=== PATIENT | female | born 1990 | race Caucasian/White ===

== ENCOUNTER 2017-08-07 01:47 | Emergency (ER) | payer MEDICAID, OTHER ==
[~2017-08-07] VITALS: Ht 152.4 cm; Wt 73.0 kg
[2017-08-07 05:29] LABS: CLARITY,URINE SLIGHTLY CLOUDY (Clear); COLOR,URINE YELLOW (Yellow); GLUCOSE, URINE NEGATIVE (Neg); KETONES,URINE NEGATIVE (Neg); LEUKOCYTE ESTERASE ,URINE NEGATIVE (Neg); NITRITES, URINE NEGATIVE (Neg); OCCULT BLOOD,URINE MODERATE (Neg); PROTEIN,URINE NEGATIVE (Neg); URINE HCG NEGATIVE (NEG); UROBILINOGEN,URINE 0.2 E.U/dL (0.2-1.0)
[2017-08-07 05:38] LABS: UA COLLECTION TYPE CLN CATCH MIDSTREAM
[2017-08-07 05:39] LABS: WBC,URINE NONE SEEN /HPF (0-4)
[2017-08-07 05:40] LABS: BACTERIA,URINE NONE SEEN /HPF (Neg); MUCUS STRANDS NONE SEEN /LPF (Neg); SQUAMOUS EPITHELIAL CELL,UR FEW /LPF (FEW)
[2017-08-07] MEDS ORDERED: ketorolac trometh inj. 60 MG/2 ML VIAL IM ONE (06:15)
[2017-08-07] MEDS ORDERED: IBUP-1984 PO (06:18)
[2017-08-07] MEDS ORDERED: ONDA8TAB9 PO (06:18)
[2017-08-07 06:29] VITALS: BP 131/79
== END 2017-08-07 06:30 | disposition home or self-care (01) ==
LOC: ER 01:47
DX: N23 Unspecified renal colic (principal); F12.10 Cannabis abuse, uncomplicated
CPT/HCPCS: 81001; 81025; 96372; 99284; J1885

== ENCOUNTER 2018-08-06 08:31 | Emergency (ER) | payer MEDICAID ==
[~2018-08-06] VITALS: Ht 152.4 cm; Wt 78.8 kg
[~2018-08-06 08:31] MED LIST: ONDA8TAB9 PO
[2018-08-06 08:57] VITALS: BP 134/79
[2018-08-06 10:55] LABS: BASOPHILS # (AUTO) 0.1 X10'3 (0-0.2); BASOPHILS % (AUTO) 0.6 % (0-1); EOSINOPHILS # (AUTO) 0.1 X10'3 (0-0.9); EOSINOPHILS % (AUTO) 0.7 % (0-6); HEMATOCRIT 39.9 % (35.0-45.0); HEMOGLOBIN 13.7 g/dl (12.0-16.0); LYMPHOCYTES # (AUTO) 1.9 X10'3 (1.1-4.8); MEAN CORPUSCULAR HEMOGLOBIN 30.5 PG (27.0-31.0); MEAN CORPUSCULAR HGB CONC 34.3 g/dL (33.0-36.5); MEAN PLATELET VOLUME 8.6 FL (7.4-10.4); MONOCYTES # (AUTO) 0.7 X10'3 (0-0.9); MONOCYTES % (AUTO) 7.2 % (2-12); NEUTROPHILS # (AUTO) 7.4 X10'3 (1.8-7.7); NEUTROPHILS % (AUTO) 72.5 % (42-75); PLATELET COUNT 238 X10'3 (140-440); RED BLOOD COUNT 4.49 X10'6 (4.20-5.60); RED CELL DISTRIBUTION WIDTH 14.4 % (11.5-14.5); WHITE BLOOD COUNT 10.3 X10'3 (4.5-11.0)
[2018-08-06 11:08] LABS: ALANINE AMINOTRANSFERASE 30 U/L (12-78); ALBUMIN 4.1 G/DL (3.4-5.0); ALBUMIN/GLOBULIN RATIO 1.4 (1.1-1.5); ALKALINE PHOSPHATASE 61 IU/L (46-116); ANION GAP 6 (8-16); ASPARTATE AMINO TRANSFERASE 13 U/L (10-37); BILIRUBIN,TOTAL 0.4 MG/DL (0.1-1.0); BLOOD UREA NITROGEN 16 MG/DL (7-18); BUN/CREATININE RATIO 18.4 (6.6-38.0); CALCIUM 9.4 MG/DL (8.5-10.1); CHLORIDE 105 MMOL/L (99-107); CREATININE 0.87 MG/DL (0.40-0.90); GLUCOSE 97 MG/DL (70-104); POTASSIUM 4.3 MMOL/L (3.5-5.1); SODIUM 140 MMOL/L (135-145); TOTAL CARBON DIOXIDE 29.5 MMOL/L (24-32); TOTAL PROTEIN 7.1 G/DL (6.4-8.2); eGFR 77 ML/MIN
[2018-08-06 14:02] LABS: CLARITY,URINE CLOUDY (Clear); COLOR,URINE YELLOW (Yellow); GLUCOSE, URINE NEGATIVE (Neg); KETONES,URINE NEGATIVE (Neg); LEUKOCYTE ESTERASE ,URINE NEGATIVE (Neg); NITRITES, URINE NEGATIVE (Neg); OCCULT BLOOD,URINE SMALL (Neg); PH,URINE 5.5 (4.8-8.0); PROTEIN,URINE TRACE mg/dl (Neg); UA COLLECTION TYPE CLN CATCH MIDSTREAM; URINE HCG NEGATIVE (NEG); UROBILINOGEN,URINE 0.2 E.U/dL (0.2-1.0)
[2018-08-06 14:07] LABS: MUCUS STRANDS MANY /LPF (Neg); SQUAMOUS EPITHELIAL CELL,UR MANY /LPF (FEW)
[2018-08-06 14:08] LABS: WBC,URINE 20-30 /HPF (0-4)
[2018-08-06 14:17] LABS: CAL OXALATE CRYSTALS 1+ /HPF (NEGATIVE); HYALINE CASTS 0-3 /LPF (NEGATIVE); TRANSITIONAL EPI CELLS,URINE FEW /HPF
[2018-08-06 14:20] LABS: BACTERIA,URINE 3+ /HPF (Neg)
[2018-08-06] MEDS ORDERED: HYDR-4353 PO (14:50)
[2018-08-06] MEDS ORDERED: NITR100C6 PO (14:50)
[2018-08-06] MEDS ORDERED: IBUP-1984 PO (14:50)
[2018-08-06] MEDS ORDERED: ONDA4TAB6 PO (14:50)
== END 2018-08-06 15:01 | disposition home or self-care (01) ==
LOC: ER 08:31
DX: N23 Unspecified renal colic (principal); F12.90 Cannabis use, unspecified, uncomplicated; Z79.899 Other long term (current) drug therapy
CPT/HCPCS: 36415; 80053; 81001; 81025; 85025; 99283

== ENCOUNTER 2019-12-28 23:53 | Inpatient (IN) | payer MEDICAID ==
[~2019-12-28] VITALS: Ht 152.4 cm; Wt 65.9 kg
[~2019-12-28 23:53] MED LIST changes: +NITR100C6 PO; +ONDA4TAB6 PO
[2019-12-29] VITALS (16 sets, daily range): BP systolic 94–137; BP diastolic 52–79
[2019-12-29] MEDS ORDERED: normal saline 1000ml 1,000 ML IV ONE (00:10)
[2019-12-29] MEDS ORDERED: ondansetron/PF 4mg/2ml inj IV ONE (00:10)
[2019-12-29] MEDS ORDERED: morphine 4 MG/ML inj SYRINge IV ONE ×3 (00:10→03:00)
[2019-12-29 00:44] LABS: BASOPHILS # (AUTO) 0.1 X10'3 (0-0.2); BASOPHILS % (AUTO) 0.8 % (0-1); EOSINOPHILS # (AUTO) 0.1 X10'3 (0-0.9); HEMATOCRIT 36.9 % (35.0-45.0); HEMOGLOBIN 12.2 g/dl (12.0-16.0); LYMPHOCYTES # (AUTO) 1.1 X10'3 (1.1-4.8); LYMPHOCYTES % (AUTO) 10.1 % (21-51); MEAN CORPUSCULAR HEMOGLOBIN 29.6 PG (27.0-31.0); MEAN CORPUSCULAR HGB CONC 33.1 g/dL (33.0-36.5); MEAN CORPUSCULAR VOLUME 89.4 FL (78-98); MEAN PLATELET VOLUME 7.2 FL (7.4-10.4); MONOCYTES # (AUTO) 0.2 X10'3 (0-0.9); MONOCYTES % (AUTO) 2.1 % (2-12); NEUTROPHILS # (AUTO) 8.9 X10'3 (1.8-7.7); PLATELET COUNT 393 X10'3 (140-440); RED BLOOD COUNT 4.13 X10'6 (4.20-5.60); WHITE BLOOD COUNT 10.4 X10'3 (4.5-11.0)
[2019-12-29 01:01] LABS: ALANINE AMINOTRANSFERASE 43 U/L (12-78); ALBUMIN 3.4 G/DL (3.4-5.0); ALBUMIN/GLOBULIN RATIO 0.7 (1.1-1.5); ALKALINE PHOSPHATASE 93 IU/L (46-116); ANION GAP 10 (8-16); ASPARTATE AMINO TRANSFERASE 33 U/L (10-37); BILIRUBIN,TOTAL 0.2 MG/DL (0.1-1.0); BLOOD UREA NITROGEN 18 MG/DL (7-18); CALCIUM 9.3 MG/DL (8.5-10.1); CHLORIDE 104 MMOL/L (99-107); GLUCOSE 77 MG/DL (70-104); LIPASE 567 U/L (73-393); POTASSIUM 4.1 MMOL/L (3.5-5.1); SODIUM 140 MMOL/L (135-145); TOTAL CARBON DIOXIDE 26.1 MMOL/L (24-32); TOTAL PROTEIN 8.2 G/DL (6.4-8.2); eGFR 41 ML/MIN
[2019-12-29] MEDS ORDERED: proCHLORperazine 10 MG/2 ml inj IV ONE (01:15)
[2019-12-29 01:34] LABS: CLARITY,URINE CLOUDY (Clear); COLOR,URINE BROWN (Yellow); GLUCOSE, URINE NEGATIVE (Neg); KETONES,URINE 15 mg/dl (Neg); LEUKOCYTE ESTERASE ,URINE MODERATE (Neg); NITRITES, URINE POSITIVE (Neg); OCCULT BLOOD,URINE LARGE (Neg); PH,URINE 5.5 (4.8-8.0); PROTEIN,URINE >=300 mg/dl (Neg); URINE HCG NEGATIVE (NEG)
[2019-12-29 01:41] LABS: UA COLLECTION TYPE CLN CATCH MIDSTREAM
[2019-12-29 01:43] LABS: BACTERIA,URINE 4+ /HPF (Neg); MUCUS STRANDS NONE SEEN /LPF (Neg); RBC,URINE TNTC /HPF (0-2); SQUAMOUS EPITHELIAL CELL,UR MODERATE /LPF (FEW); WBC CLUMPS,URINE MODERATE /HPF (NEGATIVE); WBC,URINE TNTC /HPF (0-4)
[2019-12-29 01:46] LABS: URINE AMPHETAMINE SCREEN POSITIVE (Neg); URINE BARBITUATE SCREEN NEGATIVE (Neg); URINE BENZODIAZEPINES SCREEN NEGATIVE (Neg); URINE CANNABINOID SCREEN POSITIVE (Neg); URINE COCAINE SCREEN NEGATIVE (Neg); URINE METHADONE SCREEN NEGATIVE (Neg); URINE OPIATE SCREEN NEGATIVE (Neg); URINE PHENCYCLIDINE SCREEN NEGATIVE (Neg)
[2019-12-29] MEDS ORDERED: CefTRIAXone 2gm/D5W 50ml 50 ML IV ONE (01:50)
[2019-12-29] MEDS ORDERED: morphine/NS 5 mg/ml CADD 50 ML IV SCH (03:19)
[2019-12-29] MEDS ORDERED: potassium CL 10mEq/100ml bag 100 ML IV PRN ×2 (03:20)
[2019-12-29] MEDS ORDERED: naloxone 0.4 mg/ml inj IV PRN (03:20)
[2019-12-29] MEDS ORDERED: CADD PCA waste documentation MC PRN (03:20)
[2019-12-29] MEDS: normal saline 1000ml 1,000 ML IV SCH ×3 (05:23→15:11)
[2019-12-29] MEDS: HYDROmorphone/NS 1 mg/ml CADD 50 ML IV SCH ×10 (05:27→23:00)
[2019-12-29] MEDS: K and/or MAG REPLACEMENT MC SCH ×2 (08:00→20:00)
[2019-12-29] MEDS: ondansetron/PF 4mg/2ml inj IV PRN (10:34)
[2019-12-29 11:48] LABS: PARTIAL THROMBOPLASTIN TIME 36 SECONDS (22-32)
--- NOTE | 2019-12-29 12:25 | NUR ---
PAGER ID: [phone] MESSAGE: Sheyla-Surg [id number] Re: Long 340A patient very anxious can I get a little Ativan for her also a nicotine patch please call
[2019-12-29] MEDS ORDERED: LORazepam 0.5 MG tablet PO ONE (12:30)
[2019-12-29] MEDS: nicotine 7mg patch - 24hr TD SCH (12:36)
[2019-12-29] MEDS ORDERED: LORazepam 0.5 MG tablet PO PRN (17:25)
[2019-12-29] MEDS ORDERED: sevoflurane 250ml liquid IH ONE (18:28)
[2019-12-29] MEDS ORDERED: fentaNYL/PF 50MCG/1 ML 2ML syringe ONE (18:31)
[2019-12-29] MEDS ORDERED: propofol inj 20 ML IV ONE (18:33)
[2019-12-29] MEDS ORDERED: midazolam 2 mg/2 ml injection ONE (18:33)
--- NOTE | 2019-12-29 18:49 | NUR ---
Problems reprioritized. Patient report given, questions answered & plan of care reviewed with Micaela Redding RN.
--- NOTE | 2019-12-29 19:25 | NUR ---
Received from OR via BED, accompanied by Anesthesiologist DR SPAIN--- and report given by Anesthesiolgist. PATIENT A&OX4, DENIES PAIN, V/S WNL, NEUROVASCULAR CHECKS INTACT, 20G PIV LUE, SCD ON, PERIPAD WITH SCANT DRAINAGE AT CYSTOCOPY SURGICAL SITE.
--- NOTE | 2019-12-29 19:32 | NUR ---
Received report from piedad gomez RN. No blood loss, no FC, chandan pad with scant drainage, bilateral stents placed via cystoscopy, No pain, tachy at 116 BPM, BP 98/52, General anesthetic, EBL.
--- NOTE | 2019-12-29 20:05 | NUR ---
PATIENT A&OX4, DENIES PAIN, V/S WNL, NEUROVASCULAR CHECKS INTACT, 20G PIV LUE, SCD ON, PERIPAD WITH SCANT DRAINAGE AT CYSTOCOPY SURGICAL SITE. PATIENT TAKEN TO 340A WITH ALL BELONGINGS AND HOOKED UP TO MONITORS IN ROOM AND REPORT GIVEN TO SHOE CLERK WHO HAS TAKEN OVER PATIENT CARE.
[2019-12-30] VITALS: BP 108/74
[2019-12-30] MEDS: HYDROmorphone/NS 1 mg/ml CADD 50 ML IV SCH ×12 (01:00→23:00)
[2019-12-30] MEDS ORDERED: CefTRIAXone/D5W-Rocephin 1gm 50 ML IV SCH (02:00)
[2019-12-30 04:00] VITALS: BP 126/77
[2019-12-30] MEDS: ondansetron/PF 4mg/2ml inj IV PRN (05:33)
[2019-12-30 06:07] LABS: BASOPHILS % (AUTO) 0.2 % (0-1); EOSINOPHILS % (AUTO) 0.2 % (0-6); HEMATOCRIT 29.6 % (35.0-45.0); HEMOGLOBIN 9.7 g/dl (12.0-16.0); LYMPHOCYTES # (AUTO) 0.9 X10'3 (1.1-4.8); LYMPHOCYTES % (AUTO) 5.2 % (21-51); MEAN CORPUSCULAR HEMOGLOBIN 29.2 PG (27.0-31.0); MEAN CORPUSCULAR HGB CONC 32.9 g/dL (33.0-36.5); MEAN CORPUSCULAR VOLUME 88.8 FL (78-98); MEAN PLATELET VOLUME 7.8 FL (7.4-10.4); MONOCYTES # (AUTO) 1.1 X10'3 (0-0.9); MONOCYTES % (AUTO) 6.2 % (2-12); NEUTROPHILS # (AUTO) 15.9 X10'3 (1.8-7.7); NEUTROPHILS % (AUTO) 88.2 % (42-75); PLATELET COUNT 259 X10'3 (140-440); RED BLOOD COUNT 3.33 X10'6 (4.20-5.60); RED CELL DISTRIBUTION WIDTH 15.1 % (11.5-14.5); WHITE BLOOD COUNT 18.1 X10'3 (4.5-11.0)
[2019-12-30 06:18] LABS: ALANINE AMINOTRANSFERASE 27 U/L (12-78); ALBUMIN 2.3 G/DL (3.4-5.0); ALBUMIN/GLOBULIN RATIO 0.5 (1.1-1.5); ALKALINE PHOSPHATASE 105 IU/L (46-116); ANION GAP 8 (8-16); ASPARTATE AMINO TRANSFERASE 21 U/L (10-37); BILIRUBIN,TOTAL 0.2 MG/DL (0.1-1.0); BLOOD UREA NITROGEN 16 MG/DL (7-18); BUN/CREATININE RATIO 15.2 (6.6-38.0); CALCIUM 8.2 MG/DL (8.5-10.1); CHLORIDE 106 MMOL/L (99-107); CREATININE 1.05 MG/DL (0.40-0.90); GLUCOSE 117 MG/DL (70-104); POTASSIUM 3.3 MMOL/L (3.5-5.1); SODIUM 141 MMOL/L (135-145); TOTAL CARBON DIOXIDE 26.9 MMOL/L (24-32); TOTAL PROTEIN 6.5 G/DL (6.4-8.2); eGFR 61 ML/MIN
--- NOTE | 2019-12-30 06:36 | NUR ---
Problems reprioritized. Patient report given, questions answered & plan of care reviewed with SHIRA Carrion.
[2019-12-30 07:00] VITALS: BP 120/77
--- NOTE | 2019-12-30 07:09 | NUR ---
Patient in room [facility]. I have received report from Micaela Redding RN and had the opportunity to ask questions and assume patient care.
[2019-12-30] MEDS: K and/or MAG REPLACEMENT MC SCH ×3 (08:00→20:00)
--- NOTE | 2019-12-30 08:15 | NUR ---
PAGER ID: [phone] MESSAGE: DarionSurg [id number] Re: Kelechi 340A can I get Tylenol ordered for her headache Addendum: 12/30/19 at 0819 by Sheyla Blunt RN Received orders for 650Mg Tylenol PO Q6H prn for pain
[2019-12-30] MEDS: nicotine 7mg patch - 24hr TD SCH (08:35)
[2019-12-30] MEDS: acetaminophen 325mg tablet PO PRN ×2 (08:36→14:59)
[2019-12-30] MEDS: normal saline 1000ml 1,000 ML IV SCH ×3 (09:17→19:39)
[2019-12-30 11:00] VITALS: BP 120/80
[2019-12-30 11:16] LABS: LIPASE 132 U/L (73-393)
--- NOTE | 2019-12-30 11:30 | NUR ---
Dr Turcios aware of patients K+ being 3.3 and that her Procal came back at 23.47. Also, informed her that patients U/A came back with gram negative rods but no sensitivity yet. Dr Turcios said she will put in orders for electrolyte protocol and make changes to her antibiotic.
[2019-12-30] MEDS ORDERED: potassium CL 10mEq/100ml bag 100 ML IV PRN (11:45)
[2019-12-30] MEDS ORDERED: potassium Cl 20 mEq SR tablet PO PRN (11:45)
[2019-12-30] MEDS ORDERED: magnesium 4gm in 100ml NS 100 ML IV PRN (11:45)
[2019-12-30] MEDS ORDERED: magnesium Cl slow-release 64mg tablet PO PRN (11:45)
[2019-12-30] MEDS: potassium Cl 20 mEq SR tablet PO PRN ×3 (11:50→21:20)
[2019-12-30] MEDS: piperacillin/tazo 3.375gm/50ml 50 ML IV SCH (15:51)
[2019-12-30 18:00] VITALS: BP 129/90
--- NOTE | 2019-12-30 18:24 | NUR ---
Patient in room [facility]. I have received report from ARISTEO SILVA and had the opportunity to ask questions and assume patient care.
--- NOTE | 2019-12-30 18:25 | NUR ---
Problems reprioritized. Patient report given, questions answered & plan of care reviewed with Prudence RN.
[2019-12-30] MEDS ORDERED: ketorolac tromethamine 15mg/ml inj. IV ONE (19:20)
[2019-12-30] MEDS: lactobacillus rhamnosus 10,000 MMU CELLS/CAPSULE PO SCH (19:32)
[2019-12-31] VITALS: BP 139/90
[2019-12-31] MEDS: piperacillin/tazo 3.375gm/50ml 50 ML IV SCH ×2 (00:12→07:32)
[2019-12-31] MEDS: acetaminophen 325mg tablet PO PRN (00:13)
[2019-12-31] MEDS: HYDROmorphone/NS 1 mg/ml CADD 50 ML IV SCH ×5 (01:00→09:00)
[2019-12-31] MEDS: normal saline 1000ml 1,000 ML IV SCH (04:33)
[2019-12-31 05:30] LABS: ALANINE AMINOTRANSFERASE 35 U/L (12-78); ALBUMIN/GLOBULIN RATIO 0.5 (1.1-1.5); ALKALINE PHOSPHATASE 92 IU/L (46-116); ANION GAP 7 (8-16); ASPARTATE AMINO TRANSFERASE 35 U/L (10-37); BILIRUBIN,TOTAL 0.2 MG/DL (0.1-1.0); BLOOD UREA NITROGEN 10 MG/DL (7-18); BUN/CREATININE RATIO 12.7 (6.6-38.0); CALCIUM 8.1 MG/DL (8.5-10.1); CHLORIDE 108 MMOL/L (99-107); CREATININE 0.79 MG/DL (0.40-0.90); GLUCOSE 97 MG/DL (70-104); POTASSIUM 3.5 MMOL/L (3.5-5.1); SODIUM 142 MMOL/L (135-145); TOTAL CARBON DIOXIDE 26.9 MMOL/L (24-32); eGFR 85 ML/MIN
[2019-12-31 05:32] LABS: BASOPHILS % (AUTO) 0.1 % (0-1); EOSINOPHILS # (AUTO) 0.1 X10'3 (0-0.9); EOSINOPHILS % (AUTO) 0.8 % (0-6); HEMATOCRIT 27.4 % (35.0-45.0); HEMOGLOBIN 8.9 g/dl (12.0-16.0); LYMPHOCYTES # (AUTO) 1.2 X10'3 (1.1-4.8); MEAN CORPUSCULAR HEMOGLOBIN 28.7 PG (27.0-31.0); MEAN CORPUSCULAR HGB CONC 32.6 g/dL (33.0-36.5); MEAN CORPUSCULAR VOLUME 87.9 FL (78-98); MEAN PLATELET VOLUME 8.1 FL (7.4-10.4); MONOCYTES % (AUTO) 6.8 % (2-12); NEUTROPHILS # (AUTO) 12.2 X10'3 (1.8-7.7); NEUTROPHILS % (AUTO) 84.3 % (42-75); PLATELET COUNT 231 X10'3 (140-440); RED BLOOD COUNT 3.12 X10'6 (4.20-5.60); RED CELL DISTRIBUTION WIDTH 15.1 % (11.5-14.5); WHITE BLOOD COUNT 14.4 X10'3 (4.5-11.0)
--- NOTE | 2019-12-31 06:38 | NUR ---
Problems reprioritized. Patient report given, questions answered & plan of care reviewed with JACINTO SILVA. Patient is resting and still complaining of headache.
[2019-12-31 07:00] VITALS: BP 125/83
[2019-12-31] MEDS: lactobacillus rhamnosus 10,000 MMU CELLS/CAPSULE PO SCH (07:32)
[2019-12-31] MEDS: nicotine 7mg patch - 24hr TD SCH (07:33)
[2019-12-31] MEDS: K and/or MAG REPLACEMENT MC SCH ×2 (08:00)
--- NOTE | 2019-12-31 08:13 | NUR ---
PAGER ID: [phone] MESSAGE: Bibiisai Kelechi 340A Has dilaudid CADD, however c/o extreme 01/28 headache. One time only Toradol order effective last night. May I have an order? Pt. crying out. Flor [id number]
[2019-12-31 10:24] VITALS: BP 143/84
--- NOTE | 2019-12-31 10:28 | NUR ---
PAGER ID: [phone] MESSAGE: HELP ME OUT :) PT. VERY UPSET. STATES WE ARE NOT DOING ANYTHING FOR HER HEADACHE. ICE AND TYELENOL INEFFECTIVE. PT. WANTS TORDOL. CHERRY KRUSE 340A- JACINTO
[2019-12-31] MEDS ORDERED: ketorolac tromethamine 15mg/ml inj. IV PRN (10:45)
[2019-12-31 11:05] VITALS: BP 134/92
[2019-12-31] MEDS ORDERED: CIPR-230 PO (12:18)
--- NOTE | 2019-12-31 13:34 | NUR ---
Reviewed discharge paperwork with pt. Provided written education on UTI and stent placement. Gave contact info for MD Masters's office so pt. could follow up with him. Called MD Masters. He is aware of pt's discharge and states his office will contact the patient for f/u edward. to remove stents. No other orders. IV DC'd, pressure bandage applied, no s/sx bleeding noted. Pt. aware that antibiotic is waiting for her at her preferred pharmacy- has been e-scripted.
[2019-12-31] MEDS ORDERED: ketorolac tromethamine 15mg/ml inj. IV SCH (14:00)
== END 2019-12-31 13:47 | disposition home or self-care (01) | DRG 463 ==
LOC: ER 23:55 → ED HOLD 12-29 03:17 → SUR 3N 12-29 07:50
PROVIDERS: ADMIT Internal Medicine; ATTEND Internal Medicine
PROC: 0T788DZ Dilation of Bilateral Ureters with Intraluminal Device, Via Natural or Artificial Opening Endoscopic (ICD-10-PCS; principal; 2019-12-29 18:28)
DX: N13.6 Pyonephrosis (principal); B96.1 Klebsiella pneumoniae [K. pneumoniae] as the cause of diseases classified elsewhere; F12.90 Cannabis use, unspecified, uncomplicated; F17.210 Nicotine dependence, cigarettes, uncomplicated; F41.9 Anxiety disorder, unspecified; G43.909 Migraine, unspecified, not intractable, without status migrainosus; Z87.442 Personal history of urinary calculi
CPT/HCPCS: 36415; 74176; 80053; 80305; 81001; 81025; 82948; 83690; 84145; 85025; 85610; 85730; 87077; 87081; 87088; 87186; 96365; 96375; 96376; 99285; A4618; C1758; C1769; C2617; G0378; J0696; J0780; J1170; J1885; J2250; J2270; J2405; J2543; J2704; J3010; J7030